=== PATIENT | female | born 1970 | race Hispanic/Latino ===

== ENCOUNTER 2016-05-29 08:18 | Observation (INO) | payer BC ==
--- NOTE | 2016-05-28 17:46 | History and Physical Report ---
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 Surgery:LEEP 2009 Knee Arthroscopy(L) D&C: (02/21/2016) Hysteroscopy: (02/21/2016) Abnormal PAP: positive Infection History HIV Risk Eval: no Hx of STD: None Active Medications (reviewed today): MEDROXYPROGESTERONE ACETATE 10 MG TABS (MEDROXYPROGESTERONE ACETATE) 1 po qd IBUPROFEN 800 MG TABS (IBUPROFEN) 1 po TID (PRN) OXYCODONE-ACETAMINOPHEN 5-325 MG TABS (OXYCODONE-ACETAMINOPHEN) 1-2po q6h PRAVASTATIN SODIUM TABS (PRAVASTATIN SODIUM TABS) SYNTHROID TABS (LEVOTHYROXINE SODIUM TABS) DIOVAN HCT 160-12.5 MG TABS (VALSARTAN-HYDROCHLOROTHIAZIDE) Current Allergies (reviewed today): No known allergies Past Medical History: Reviewed history from 02/16/2016 and no changes required: Hypertension fibromyalgia Hypothyroidism Hyperlipidemia Past Surgical History: Reviewed history from 02/21/2016 and 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 Risk Factors: Smoked Tobacco Use: Never smoker Alcohol use: yes Previous Tobacco Use: Signed On 03/01/2016 Smoked Tobacco Use: Never smoker Smokeless Tobacco Use: Never Passive smoke exposure: no Drug use: no HIV high-risk behavior: no Previous Alcohol Use: Signed On 03/01/2016 Alcohol use: yes Type: occ, wine Exercise: yes Times per week: 2 Type of Exercise: walk Seatbelt use: 100 % Mammogram History: Date of Last Mammogram: 05/16/2012 PAP Smear History: Date of Last PAP Smear: 11/07/2015 Review of Systems General Denies fever, chills, sweats, anorexia, fatigue, weakness, malaise, weight loss and sleep disorder. Complains of abnormal vaginal bleeding. Denies vaginal discharge, incontinence, dysuria, hematuria, urinary frequency, amenorrhea, menorrhagia, pelvic pain, genital sores, decreased libido , painful periods, painful sex, urinary urgency, hot flashes, vaginal dryness, vaginal itching and vaginal odor. CV Denies chest pains, palpitations, syncope, dyspnea on exertion, orthopnea, PND and peripheral edema. Resp Denies cough, dyspnea at rest, excessive sputum, hemoptysis, wheezing and pleurisy. GI Denies nausea, vomiting, diarrhea, constipation, change in bowel habits, abdominal pain, melena, hematochezia, jaundice, gas/bloating, indigestion/ heartburn, dysphagia and odynophagia. Endo Denies cold intolerance, heat intolerance, polydipsia, polyphagia, polyuria and unusual weight change. Breast Denies left breast lump, right breast lump, nipple discharge, bloody discharge from nipple, breast pain, abnormal mammogram and breast enlargement. MS Denies back pain, joint pain, joint swelling, muscle cramps, muscle weakness, stiffness, arthritis, sciatica, restless legs, leg pain at night and leg pain with exertion. Derm Denies rash, itching, dryness and suspicious lesions. Neuro Denies paralysis, paresthesias, headache, seizures, tremors, vertigo, transient blindness, frequent falls, frequent headaches and difficulty walking. Psych Denies depression, anxiety, irritability and mood swings. Eyes Denies blurring, diplopia, irritation, discharge, vision loss, eye pain and photophobia. ENT Denies earache, ear discharge, tinnitus, decreased hearing, nasal congestion, nosebleeds, sore throat and hoarseness. Allergy Denies urticaria, allergic rash, hay fever and recurrent infections. Heme Denies abnormal bruising, bleeding and enlarged lymph nodes. Physical Exam Appearance: well developed, well nourished, no acute distress Other Exams Lungs: no rales, rhonchi, or wheezes Heart: S1, S2, no murmur, rub, or gallop Abdomen: soft, non-tender, no masses, bowel sounds normal Skin: no ulcers, xanthomas Lymph: no cervical, axillary, or inguinal adenopathy Extremities: normal alignment, no joint enlargement, crepitus, masses or tenderness; normal tone and strength Genitourinary Exam Vulva: normal, no lesions or discharge Urethral meatus: normal size and location, no lesions or discharge Urethra: no discharge Bladder: no cystocele Vagina: normal appearance, no discharge, lesions. No evidence of cystocele or rectocele. Cervix: normal appearance, no lesions, no discharge Uterus: normal position, midline, mobile Adnexa: no masses or tenderness Impression & Recommendations: Problem # 1: Benign endometrial hyperplasia (ICD-621.31) (XLZ96-W73.01) She desires to proceed with hysterectomy Her updated medication list for this problem includes: Medroxyprogesterone Acetate 10 Mg Tabs (Medroxyprogesterone acetate) ..... 1 po qd Ibuprofen 800 Mg Tabs (Ibuprofen) ..... 1 po tid (prn) Oxycodone-acetaminophen 5-325 Mg Tabs (Oxycodone-acetaminophen) ..... 1-2po q6h Problem # 2: Excessive and frequent menstruation with irregular cycle (ICD- 626.6) (RML53-X28.1) Her updated medication list for this problem includes: Medroxyprogesterone Acetate 10 Mg Tabs (Medroxyprogesterone acetate) ..... 1 po qd Ibuprofen 800 Mg Tabs (Ibuprofen) ..... 1 po tid (prn) Consent reviewed and signed . Possible laparoscopy or laparotomy explained to patient. The risks and alternatives for this surgery were reviewed with the patient. She was informed of possible bleeding, infection, injury to bowel, bladder, ureters or other adjacent organs. She desires ovarian conservation. She was informed she may require surgery later to have her ovaries removed for a benign or mailgnant condition The patient was instructed/informed the following: The normal length of hospital stay for this procedure. Nothing to eat or drink after midnight the evening prior to surgery. Clear liquids the day before surgery. Fleets enema the day prior to surgery. Pre-op instruction sheets given. Wound care instructions given. Infection precautions reviewed, patient to call for any signs or symptoms of infection. The usual discomforts associated with this procedure were detailed. Proper use of pain medicines was reviewed. Patient was given ample opportunity to have all her questions answered before signing informed consent. Problem # 3: Hyperlipidemia (ICD-272.4) (AYE77-N05.5) Her updated medication list for this problem includes: Pravastatin Sodium Tabs (Pravastatin sodium tabs) Problem # 4: HYPOTHYROIDISM (ICD-244.9) (ZTE00-N88.9) Her updated medication list for this problem includes: Synthroid Tabs (Levothyroxine sodium tabs) Problem # 5: HYPERTENSION (ICD-401.9) ([id number]) Her updated medication list for this problem includes: Diovan Hct 160-12.5 Mg Tabs (Valsartan-hydrochlorothiazide) Medications Added to Medication List This Visit: 1) Ibuprofen 800 Mg Tabs (Ibuprofen) .... 1 po tid (prn) 2) Oxycodone-acetaminophen 5-325 Mg Tabs (Oxycodone-acetaminophen) .... 1-2po q6h Prescriptions: IBUPROFEN 800 MG TABS (IBUPROFEN) 1 po TID (PRN) #30 x 1 Entered and Authorized by: Ciarra Angeles MD Method used: Print then Give to Patient RxID: [id number] OXYCODONE-ACETAMINOPHEN 5-325 MG TABS (OXYCODONE-ACETAMINOPHEN) 1-2po q6h #30 x 0 Entered and Authorized by: Ciarra Angeles MD Method used: Print then Give to Patient RxID: [id number] Medications and Allergies Allergies Allergy/AdvReac Type Severity Reaction Status Date / Time No Known Allergies Allergy Unverified 05/23/16 14:00 Home Medications Medication Instructions Recorded Confirmed Last Taken Type Levothyroxine Sodium [Synthroid] 1 tab PO DAILY 02/20/16 05/23/16 02/21/16 06: 00 History Pravastatin Sodium [Pravastatin 1 tab PO DAILY 02/20/16 05/23/16 02/20/16 History Sodium] Valsartan/Hydrochlorothiazide 1 tab PO DAILY 02/20/16 05/23/16 02/21/16 06:00 History [Valsartan-Hctz 160-12.5 mg Tab] Zolpidem Tartrate [Zolpidem 10 mg PO HS PRN 05/09/16 05/23/16 Unknown History Tartrate] medroxyPROGESTERone ACETATE 10 mg PO QDAY 05/28/16 05/28/16 Unknown History [Provera] Active Meds: Active Medications Hydrochlorothiazide (Hctz) 12.5 mg PO QDAY [facility] Cefazolin Sodium (Ancef/Sterile Water 2 Gm/20 Ml) 2 gm in 20 mls @ 80 mls/hr IV PREOP NR PRN Reason: Protocol Stop: 05/29/16 23:59 Levothyroxine Sodium (Synthroid) 50 mcg PO 0600 MINDY Valsartan (Diovan) 160 mg PO QDAY [facility] Assessment and Plan - Patient Problems (1) Excessive and frequent menstruation with irregular cycle Status: Acute (2) Benign endometrial hyperplasia Status: Acute
--- NOTE | 2016-05-29 07:42 | Admit Criteria Form ---
Admission Criteria Documentation: AMBULATORY SURGERY EXCEPTION CRITERIA Ambulatory Surgery Exception Criteria ( Place 'X' for any and all applicable criteria): Surgery or procedure performed on ambulatory basis may require inpatient stay for[A] ANY ONE of the following(1)(2)(3)(4)(5)(6)(7)(8)(9): [X] I. A preoperative situation, condition, or finding that warrants inpatient stay as indicated by ANY ONE of the following: [X] a) Inpatient care needed because of severity of a disease or condition rather than the surgery (eg, severe cardiac or respiratory disease, severe infection) (15) (16 ) (17) (18) [] b) Emergent procedure (eg, angioplasty for acute ischemia)(19) [] c) Complex surgical approach or situation as indicated by ANY ONE of the following(3): [] i) Open approach needed instead of usual endoscopic, transcatheter, or other less invasive procedure [] ii) Difficult approach because of previous operation [] iii) Airway monitoring required after open neck procedures(20)(21) [] iv) Large mass requiring unusually extensive dissection [] v) Additional complicating feature requiring inpatient care (eg, drain management)(22(23): [] d) Major surgery in a pt with high anesthetic risk as indicated by ANY ONE of the following (2)(3)(5)(7)(8): [] i) ASA risk class III or higher (severe systemic disease impairing function) [D] [] ii) Advanced age (eg, older than 85 years)(14)(24) [] iii) Symptomatic heart failure(25) [] iv) Symptomatic asthma or COPD(8)(21) [] v) Morbid obesity with hemodynamic or respiratory problems(20)( 21)(26)(27) [] vi) Obstructive sleep apnea(20)(21) [] vii) Former premature infants who are younger than 60 weeks [] viii) High risk for severe postoperative abnormalities (eg, severe postoperative hypocalcemia after parathyroidectomy for severe hyperparathyroidism)(27)( 28) [] ix) Unstable angina(25) [] e) Drug-related risk requiring inpatient stay as indicated by ANY ONE of the following(5)(10)(14)(32)(33) [] i) Procedure requires discontinuing drugs or other therapy (eg , antiarrhythmic medication, antiseizure medication), which necessitates inpatient observation or treatment.(18)(31) [] ii) Major surgery and high risk drug use as indicated by ANY ONE of the following: [] 1) Active abuse of cocaine or similar drug [] 2) Monoamine oxidase inhibitor use [] 3) Other drug identified as posing risk [] f) Inadequate outpatient care situation as indicated by ANY ONE of the following(5)(10)(14)(32)(33) [] i) Patient lives remote from medical facility and procedure has urgent complication potential, and temporary nearby residence cannot be arranged [] ii) Patient will have postprocedure incapacitation and inadequate assistance at home, or alternative level of care cannot be arranged. [] iii) Patient will have long general anesthesia or procedure side effect resolution time, and competent person to stay with patient on first postoperative night at home or alternative level of care cannot be arranged. []iv) Other inadequate outpatient situation that cannot be handled by other means [] II. A perioperative event, condition, or finding that warrants inpatient stay as indicated by ANY ONE of the following (1)(2)(3): [] a) Inadequate physiologic recovery: cardiovascular, respiratory, or hemodynamic status not normal or near preoperative baseline(18) [] b) Hemodynamic instability [] c) Patient not alert with near normal or baseline mental status [] d) Temperature not normal or as expected and not appropriate for outpatient treatment of condition [] e) Ambulatory or appropriate activity level status not yet achieved post procedure [E](34)(35)(36) [] f) Operative site not appropriate (eg, unexpected or excessive drainage or bleeding) [] g) Postoperative effects not resolved or adequately managed (eg, significant pain or vomiting not appropriate for outpatient or next level of care)(10)(12) [] h) Complicating features requiring inpatient care as indicated by ANY ONE of the following(37): [] i) Severe complications of procedure (eg, bowel injury, airway compromise, vascular injury,severe hemorrhage) [] ii) Extensive (eg, dissection far beyond usual scope of procedure ) or prolonged (eg, 120 minutes beyond usual) surgery needed requiring inpatient postoperative care [] iii) Conversion to an open or complex procedure that requires inpatient care (eg, open vs laparoscopic cholecystectomy, abdominal vs vaginal hysterectomy)(38) [] iv) Comorbid condition or test result identified during or post procedure that requires inpatient care (7) [] v) Malignant hyperthermia(30) [] vi) Other complicating feature requiring inpatient care(22)(23) Inpatient stay may be needed until ALL of the following are present (1)(2)(3)(4) (5)(6)(10)(14)(33)(40): []a) Physiologic recovery: cardiovascular, respiratory, and hemodynamic status normal or near preoperative baseline []b) Hemodynamic stability []c) Patient alert, with near normal or baseline mental status []d) Temperature appropriate: patient afebrile or temperature appropriate for outpt treatment of condition []e) Activity level appropriate: ambulatory or appropriate activity level post procedure []f) Operative site appropriate as indicated by ALL of the following: []i) Site dry or with expected drainage []ii) Any blood noted is as expected for procedure. []g) Postoperative effects resolved or managed as indicated by ALL of the following: []i) Pain management appropriate for outpatient (or next level of) care(10) []ii) Minimal nausea and vomiting: if present, successfully treated with oral medication(12) []iii) Headache, dizziness, or drowsiness (if present) are mild. []h) Voiding status acceptable as indicated by ANY ONE of the following: []i) Voiding spontaneously []ii) No voiding but instructions given for follow-up in 6 to 8 hours []iii) Urinary catheter in place, and instructions given for follow-up []i) Complicating features requiring inpatient care manageable at a lower level of care(37) []j) Comorbid conditions manageable at a lower level of care(37) The original [employer] content created by [employer] has been revised. The portions of the content which have been revised are identified through the use of italic text or in bold, and [employer] has neither reviewed nor approved the modified material. All other unmodified content is copyright [employer]. Please see references footnoted in the original [employer] edition 2016 Admission Criteria Met: Yes
[~2016-05-29 08:18] MED LIST: ANCEF/STERILE WATER 2 GM/20 ML 2 GM/20 ML SYRINGE IV NR; NACL 0.9% 1000 ML 1,000 ML IV SCH; NEURONTIN PO NR; PEPCID PO NR; VERSED IV NR
[2016-05-29] MEDS ORDERED: DECADRON IV NR (08:49)
[2016-05-29] MEDS ORDERED: SUBLIMAZE IV NR (08:50)
[2016-05-29] MEDS ORDERED: NACL BACTERIOSTATIC INFILTRATI ONE (09:00)
[2016-05-29] MEDS ORDERED: NEURONTIN PO NR (09:00)
[2016-05-29 09:48] LABS: Hematocrit 37.5 % (30.3-42.9); Hemoglobin 12.6 gm/dl (10.1-14.3); Mean Corpuscular HGB Conc 34 % (30-34); Mean Corpuscular Hemoglobin 30 pg (28-32); Mean Corpuscular Volume 89 fl (79-97); Platelet Count 282 K/mm3 (140-440); Red Blood Count 4.22 M/mm3 (3.65-5.03); Red Cell Distribution Width 13.8 % (13.2-15.2); White Blood Count 7.8 K/mm3 (4.5-11.0)
[2016-05-29] MEDS ORDERED: DIPRIVAN 10 MG/ML IV ONE (09:51)
[2016-05-29] MEDS ORDERED: SUBLIMAZE ONE (09:51)
[2016-05-29] MEDS ORDERED: XYLOCAINE MPF 2% ONE (09:52)
[2016-05-29] MEDS ORDERED: ZEMURON IV ONE ×2 (09:53→13:00)
[2016-05-29] MEDS ORDERED: NACL 0.9% 1000 ML 0 ML ONE (09:57)
[2016-05-29] MEDS ORDERED: HCTZ PO SCH (10:00)
[2016-05-29] MEDS ORDERED: NON-FORMULARY (Valsartan/Hydrochlorothiazide [Valsartan-Hctz 160-12.5 Mg Tab] 1 TAB) PO SCH (10:00)
[2016-05-29] MEDS ORDERED: DIOVAN PO SCH (10:00)
[2016-05-29] MEDS ORDERED: XYLOCAINE 1% 20 mL ONE (10:12)
[2016-05-29] MEDS ORDERED: MARCAINE-EPI/PF 0.5%-1:200,000 INFILTRATI ONE (10:12)
[2016-05-29] MEDS ORDERED: MARCAINE-EPI 0.5%-1:200,000 INFILTRATI ONE (10:12)
[2016-05-29] MEDS ORDERED: ePHEDrine SULFATE ONE (11:44)
[2016-05-29] MEDS ORDERED: NACL 0.9% 1000 ML 1,000 ML ONE ×2 (11:54→13:40)
[2016-05-29] MEDS ORDERED: ROBINUL ONE ×2 (12:12)
[2016-05-29] MEDS ORDERED: ZOFRAN ONE (12:15)
[2016-05-29] MEDS ORDERED: NEOSPORIN GU IR ONE (12:15)
[2016-05-29] MEDS ORDERED: DECADRON ONE (12:15)
[2016-05-29] MEDS ORDERED: DILAUDID IV PRN (12:25)
--- NOTE | 2016-05-29 12:25 | Anesthesia Day of Surgery ---
Anesthesia Day of Surgery - Day of Surgery Patient Examined: Yes Patient H&P Reviewed: Yes Patient is NPO: Yes
[2016-05-29] MEDS ORDERED: NACL 0.9% 100 ML ONE (12:29)
[2016-05-29] MEDS ORDERED: NEO SYNEPHRINE ONE (12:30)
[2016-05-29] MEDS ORDERED: DILAUDID ONE (12:51)
[2016-05-29] MEDS ORDERED: NACL 0.9% IR ONE (13:00)
[2016-05-29] MEDS ORDERED: NEOSTIGMINE ONE (13:00)
[2016-05-29] MEDS ORDERED: WATER FOR IRRIG STERILE IR ONE (13:00)
[2016-05-29] MEDS ORDERED: TORADOL ONE (13:23)
--- NOTE | 2016-05-29 14:16 | Operative Report ---
Operative Report Operative Report: Date of procedure: 05/29/2016 Pre-operative diagnosis: 1. Excessive and frequent irregular menstrual bleeding 2. Endometrial hyperplasia Post-operative diagnosis: 1. Excessive and frequent irregular menstrual bleeding 2. Endometrial hyperplasia Procedure name(s): 1. Robotic-assisted total hysterectomy 2. Bilateral salpingectomy Surgeon: Ciarra Angeles MD Sewer Inspector: Anesthesia: General anesthesia Findings: Exam under anesthesia was unremarkable. Uterus is sounded to 10 cm. Bilateral paratubal cysts otherwise grossly normal uterus, tubes and ovaries Anesthesiologist: Dr. Alaina Aguilar Complications: None EBL: 50 mL Procedure: After risks, benefits, complications, consequences, and alternatives for this procedure were discussed the patient, and she voiced understanding and desired to proceed, she was taken to the OR where general anesthesia was induced. She was placed in the dorsolithotomy position, exam under anesthesia was unremarkable. She was then prepped and draped in usual sterile fashion. A timeout was performed. Nix catheter was introduced into the bladder. A bivalve speculum was introduced into the vagina, and the anterior lip of the cervix was grasped with a single-tooth tenaculum. The uterus was sounded to approximately 10 cm. The cervix was progressively dilated to allow the large the V care uterine manipulator. The tenaculum and speculum were removed and the Vcare manipulator was secured in place. A solution saturated laparotomy sponge was placed in the vagina. Sterile gloves were placed and attention was turned to the abdomen. A 10 mm Optiview trocar with scope and camera attached was placed through a midline vertical incision was approximately 10 cm superior to the elevated fundus of the uterus. The trocar with camera attached was placed under direct visualization. No bowel, bladder, ureteral or major blood vessel injury was noted. The abdomen was insufflated. Patient was placed in steep Trendelenburg position. Additional trocars were placed in the following positions: 8 mm robotic trocars were placed in the bilateral midclavicular lower abdominal region approximately 10 cm lateral to the midline incision. An additional 5 mm trocar was placed in the right lateral lower abdominal region approximately 2 cm superior to the anterior superior iliac crest. A 5 mm laparoscope was placed through the 5 mm trocar. The 10 mm trocar was removed and under direct visualization and using the Jos Bolton fascia closure device and 0 Vicryl suture was placed in the midline fascia secured with a hemostat. The millimeter trocar was reintroduced the midline incision. Once the trocars were in the proper position the robot was engaged. The instruments were introduced into the 8 mm trochars. Attention was turned to console. The uterus was elevated, the utero-ovarian ligaments were clamped, cauterized and incised bilaterally using 30 W of energy. Then the round ligaments were clamped, cauterized and incised bilaterally. The anterior leaf of the broad ligament was elevated with both blunt and sharp dissection the bladder flap was created. Once the bladder appeared to be away from the operative field attention was turned the posterior leaf of the broad ligaments. The ligaments were elevated and dissected away from the uterine vessels. Once the outline of the Vcare uterine manipulator was visualized, the uterine vessels were clamped and cauterized bilaterally. Once blanching of the uterus was noted, and the posterior outline of the Vcare manipulator was visualized, and confirmed, colpotomy was performed down to the cup of the manipulator. This incision was extended in a circumferential manner to 9:00 and 3:00 positions. The uterine vessels were clamped, cauterized and incised. The colpotomy was completed. The uterus was then delivered through the vagina. Attention was turned to the adnexa. Grossly normal ovaries and the remaining tubes were noted. The pelvis was irrigated with solution warm saline. Then bilateral injected me was performed and the tube right tube was removed through the vagina and the left tube was removed through the 5 mm trocar. Once hemostasis was noted the vagina was reapproximated using the V LOC 180 suture. The pelvis was again irrigated with warm normal saline. Small hematoma was noted at the left edge of the vaginal cuff. The abdomen desufflated under direct visualization and again if insufflated and the hematoma appeared to be stable. Once hemostasis was noted, Morgan was applied for further hemostasis. The ureters were noted to be peristaltic and away from the operative field. The abdomen and pelvis were again visualized, no bowel, bladder, ureteral or major vascular injury was noted, hemostasis was also noted. The robot was disengaged and using the 10 mm laparoscope through the midline incision pelvis was again visualized paying close attention to the left edge of the vaginal cuff. Again the hematoma was noted but appeared to be stable with no expansion. The trocars were removed. The fascial incision was then ligated. The skin incisions were approximated using 4-0 Vicryl in a subcuticular manner. The incisions were then sealed with Octylseal.The laparotomy sponge was removed from the vagina, and hemostasis was noted. The patient tolerated the procedure well and was taken to recovery room in stable condition. Counts were correct x3. Clear yellow urine was noted draining into the Nix catheter was noted.
--- NOTE | 2016-05-29 14:18 | Post Anesthesia Evaluation ---
- Post Anesthesia Evaluation Patient Participated: Yes Airway Patent: Yes Stable Respiratory Function: Yes Nausea/Vomiting: No Temp > 96.8F: Yes Pain Manageable: Yes Adequeate Hydration: Yes Anesthesia Complications: No Block Receding Appropriately: Not Applicable Patient on Ventilator: No
--- NOTE | 2016-05-29 14:46 | Post Anesthesia Evaluation ---
- Post Anesthesia Evaluation Patient Participated: No (resting) Airway Patent: Yes Stable Respiratory Function: Yes Nausea/Vomiting: No Temp > 96.8F: Yes Pain Manageable: Yes Adequeate Hydration: Yes Anesthesia Complications: No Block Receding Appropriately: No Patient on Ventilator: No
[2016-05-29] MEDS ORDERED: PERCOCET 5/325 PO PRN (16:03)
[2016-05-29] MEDS ORDERED: ZOFRAN IV PRN (16:03)
[2016-05-29] MEDS ORDERED: MILK OF MAGNESIA PO PRN (16:03)
[2016-05-29] MEDS ORDERED: PHENERGAN PR PRN (16:03)
[2016-05-29] MEDS ORDERED: MORPHINE IV PRN (16:03)
[2016-05-29] MEDS ORDERED: ZOFRAN PO PRN (16:03)
[2016-05-29] MEDS ORDERED: DULCOLAX PR PRN (16:03)
[2016-05-29] MEDS ORDERED: NARCAN 0.4 MG/1 ML IV PRN (16:03)
[2016-05-29] MEDS ORDERED: REGLAN IV PRN (16:03)
[2016-05-29] MEDS ORDERED: TYLENOL PO PRN (16:30)
[2016-05-29] MEDS ORDERED: PROTONIX IV SCH (18:00)
[2016-05-29] MEDS: ANCEF/NS 1 GM/50 ML 1 GM/50 ML BAG IV SCH (18:25)
[2016-05-29] MEDS: SYNTHROID PO SCH (19:18)
[2016-05-29] MEDS ORDERED: TORADOL IV SCH (19:30)
[2016-05-29] MEDS: D5LR 1,000 ML IV SCH (20:54)
[2016-05-29] MEDS: COLACE PO SCH (22:00)
--- NOTE | 2016-05-30 01:40 | Event Note ---
Date: 05/29/16 Patient was seen earlier, the operative findings and procedure were explained. Questions were answered, expected course of hospitalization discussed,she voiced understanding and agrees with plan of care
[2016-05-30] MEDS: ANCEF/NS 1 GM/50 ML 1 GM/50 ML BAG IV SCH (02:07)
[2016-05-30] MEDS: D5LR 1,000 ML IV SCH (05:20)
[2016-05-30] MEDS: SYNTHROID PO SCH (05:25)
[2016-05-30 07:49] LABS: Hematocrit 32.7 % (30.3-42.9); Hemoglobin 11.1 gm/dl (10.1-14.3)
--- NOTE | 2016-05-30 09:05 | Discharge Summary ---
Providers - Providers Date of Admission: 05/29/16 13:55 Date of discharge: 05/30/16 Attending physician: ROSE MARIE HERNANDEZ Primary care physician: [employer] Hospitalization Condition: Good Procedures: RATH w/ bilateral salpingectomy Hospital course: uncomplicated Disposition: DISCHARGED TO HOME OR SELFCARE - Discharge Diagnoses (1) Excessive and frequent menstruation with irregular cycle Status: Resolved (2) Benign endometrial hyperplasia Status: Resolved Core Measure Documentation - Palliative Care Palliative Care/ Comfort Measures: Not Applicable - Core Measures Any of the following diagnoses?: none Exam - Constitutional Vitals: Temp Pulse Resp BP Pulse Ox 98.3 F 65 18 110/61 97 05/30/16 08:25 05/30/16 08:25 05/30/16 08:25 05/30/16 08:25 05/29/16 15:15 General appearance: Present: no acute distress - Respiratory Respiratory effort: normal Respiratory: bilateral: CTA - Cardiovascular Rhythm: regular - Extremities Extremities: no ischemia, No edema - Abdominal General gastrointestinal: Present: soft, non-tender, non-distended, normal bowel sounds Female genitourinary: Present: deferred - Rectal Rectal Exam: deferred - Integumentary Integumentary: Present: clear, warm, dry - Musculoskeletal Musculoskeletal: strength equal bilaterally - Psychiatric Psychiatric: appropriate mood/affect, intact judgment & insight, memory intact, cooperative Plan Activity: other (no driving, no sex, ambulate on your property~1mile a day,keep bladder empty, drink 64oz water a day. ) Weight Bearing Status: Non-Weight Bearing Diet: low cholesterol, low salt Wound: open to air, keep clean and dry Special Instructions: no heavy lifting Additional Instructions: Call office for any problems or concerns Follow up with: ROSE MARIE HERNANDEZ MD [Staff Physician] - (as scheduled)
[2016-05-30] MEDS: COLACE PO SCH (10:07)
--- NOTE | 2016-05-30 10:48 | Progress Note ---
Subjective Date of service: 05/30/16 Interval history: 1st POD after hysterectomy Patient is comfortable. Pain is very well under control. No nausea or vomiting. No anesthesia complications Objective - Constitutional Vitals: Vital Signs - 12hr 05/30/16 05/30/16 05/30/16 00:00 04:30 08:25 Temperature 98.2 F 98.7 F 98.3 F Pulse Rate [ 76 86 65 Right From Monitor] Respiratory 18 20 18 Rate Blood Pressure 105/61 106/63 110/61 [Right Arm] - Labs CBC & Chem 7: 05/30/16 07:18
[2016-05-30 10:53] VITALS: BP 106/62
== END 2016-05-30 11:30 | disposition home or self-care (01) ==
LOC: OR 08:18 → OB 13:55
PROVIDERS: ADMIT Obstetrics & Gynecology; ATTEND Obstetrics & Gynecology
DX: N85.01 Benign endometrial hyperplasia (principal); N92.1 Excessive and frequent menstruation with irregular cycle; E78.5 Hyperlipidemia, unspecified; E03.9 Hypothyroidism, unspecified; I10 Essential (primary) hypertension; Z90.89 Acquired absence of other organs
CPT/HCPCS: 36415; 58571; 64450; 81025; 85014; 85018; 85027; 86850; 86900; 86901; 88305; 88307; 96365; 96375; A4217; C9113; G0378; J0690; J1100; J1170; J1885; J2250; J2270; J2370; J2405; J2704; J2710; J2765; J3010; J7030; J7121; S2900